=== PATIENT | female | born 1940 | race Caucasian/White ===

== ENCOUNTER → 2024-03-17 10:16 | Outpatient (REF) | payer MEDICARE, SELFPAY ==
[2024-03-17 13:47] LABS: HDL Cholesterol 84 mg/dl; LDL Cholesterol, Calculated 172 mg/dl; Total Cholesterol 281 mg/dl (50-199); Triglyceride 125 mg/dl (10-149); Very Low Density Lipoprotein 25 mg/dl (0-30)
== END ==
LOC: OLABWIL 10:16
PROVIDERS: ATTENDING PHYSICIAN Nurse Practitioner Family
DX: E78.5 Hyperlipidemia, unspecified (principal)
CPT/HCPCS: 36415; 80061

== ENCOUNTER → 2024-11-19 12:27 | Outpatient (REF) | payer MEDICARE, SELFPAY ==
[2024-11-19 13:35] LABS: % Basophils 0.9 % (0-2); % Eosinophils 2.1 % (0-6); % Immature Granulocytes 0.2 % (0-0.5); % Lymphocytes 47.5 % (20.5-51.1); % Monocytes 11.7 % (1.7-9.3); % Neutrophils 37.6 % (42.2-75.2); Absolute Basophils 0.1 10^3/uL (0-0.2); Absolute Eosinophils 0.1 10^3/uL (0-0.7); Absolute Lymphocytes 2.7 10^3/uL (1.2-3.4); Absolute Monocytes 0.7 10^3/uL (0.1-0.6); Absolute Neutrophils 2.2 10^3/uL (1.4-6.5); Hematocrit 41.7 % (37.0-47.0); Hemoglobin 13.3 g/dL (12.0-16.0); Mean Corp Hgb Conc. 31.9 g/dL (33.0-37.0); Mean Corpuscular Hgb 30.2 pg (27.0-31.0); Mean Corpuscular Volume 94.6 fL (81.0-99.0); Mean Platelet Volume 11.2 fL (7.4-10.4); Nucleated Red Blood Cells % 0 %; Platelet Count 220 10^3/uL (130-400); Red Blood Cell Count 4.41 10^6/uL (4.20-5.40); Red Cell Dist. Width 14.3 % (11.5-14.5); White Blood Cell Count 5.8 10^3/uL (4.8-10.8)
[2024-11-19 14:02] LABS: Erythrocyte Sed Rate 2 mm/hour (0-20)
[2024-11-19 14:55] LABS: ALT (SGPT) 14 U/L (0-35); AST (SGOT) 24 U/L (14-36); Albumin 4.3 g/dl (3.5-5.0); Alkaline Phosphatase 54 U/L (38-126); Blood Urea Nitrogen 24 mg/dl (7-17); Calcium 9.2 mg/dl (8.4-10.2); Carbon Dioxide 30 mmol/L (22-30); Chloride 110 mmol/L (98-107); Glucose 91 mg/dl (70-99); HDL Cholesterol 74 mg/dl; LDL Cholesterol, Calculated 179 mg/dl; Potassium 4.2 mmol/L (3.5-5.1); Sodium 145 mmol/L (135-145); Total Bilirubin 0.6 mg/dl (0.2-1.3); Total Cholesterol 273 mg/dl (50-199); Total Protein 6.9 g/dl (6.3-8.2); Triglyceride 101 mg/dl (10-149); Very Low Density Lipoprotein 20 mg/dl (0-30); eGFR > 60.00
[2024-11-19 15:25] LABS: TSH Reflex To Free T4 3.88 uIU/ml (0.47-4.68)
== END ==
LOC: OLABWHC 12:27
PROVIDERS: ATTENDING PHYSICIAN Internal Medicine
DX: I10 Essential (primary) hypertension (principal); Z86.73 Personal history of transient ischemic attack (TIA), and cerebral infarction without residual deficits; E78.5 Hyperlipidemia, unspecified
CPT/HCPCS: 36415; 80053; 80061; 84443; 85025; 85652

== ENCOUNTER 2025-02-11 11:43 | Emergency (ER) | payer MEDICARE, SELFPAY ==
[2025-02-11 11:45] VITALS: BP 155/87
[2025-02-11 12:01] VITALS: BP 154/96
--- NOTE | 2025-02-11 12:15 | ED.GENMED ---
History of Present Illness
General
Chief Complaint: Abdominal Pain
Source: patient
Exam Limitations: none
Time Seen by Provider: 02/11/25 12:08
History of Present Illness
History of Present Illness:
See MDM
Past History
Past History
ED Past Medical History: CVA and HTN
ED Past Surgical History: Tonsilectomy
Social History
Tobacco: Former smoker
Alcohol: None
Drug: None
Living: with family
Family History
Family History: Negative Diabetes
Phy Exam
Physical Exam
Physical Exam:
See MDM
Course
Orders/Labs/Results
Orders:
Orders
02/11/25 12:14
CT Abd/pelvis W Iv Cont Urgent
Comment:
Reason For Exam: intermittent generalized abd pain
Acetaminophen [Tylenol] 650 mg PO NOW STA
02/11/25 12:23
Basic Metabolic Panel Urgent
Complete Blood Count/With Diff Urgent
02/11/25 13:24
Comprehensive Metabolic Panel Urgent
Comment: Previous hemolyzed
02/11/25 15:07
Amoxicillin 875 mg/Clav 125 mg [Augmentin 875 mg/125 mg] 1 tablet PO NOW STA
Abnormal Lab Results
02/11/25 02/11/25
12:23 13:24
MCHC 32.6 L g/dL
(33.0-37.0)
BUN 22 H mg/dl 21 H mg/dl
(7-17) (7-17)
Glucose 110 H mg/dl 103 H mg/dl
(70-99) (70-99)
02/11/25 12:23
02/11/25 13:24
Vital Signs
Initial and Last Documented VS:
Initial Vital Signs
Temp Pulse Resp BP Pulse Ox
97.6 F 75 16 155/87 98
02/11/25 11:45 02/11/25 11:45 02/11/25 11:45 02/11/25 11:45 02/11/25 11:45
Last Documented Vital Signs
Temp Pulse Resp BP Pulse Ox
98.6 F 72 17 131/77 96
02/11/25 11:57 02/11/25 14:22 02/11/25 14:22 02/11/25 14:22 02/11/25 14:22
MDM/Problems Addressed
Differential Diagnosis Includes:
Note:
CHIEF COMPLAINT(S)
The patient presents with abdominal pain and difficulty with bowel movements.
HISTORY OF PRESENT ILLNESS
The patient is an 84-year-old female experiencing abdominal discomfort for several days, primarily characterized by constipation. She described using her hands to attempt to facilitate the passage of stool, expressing a feeling that she is unable to
completely evacuate her bowels. The patient reports significant effort in trying to relieve the blockage but continues to feel discomfort. During the examination, tenderness was noted upon palpation, and a digital rectal examination revealed some
stool present but softer rather than impacted feces. Despite her efforts, including direct digital attempts to clear stool, complete relief has not been achieved.
PHYSICAL EXAM
General: Alert, no acute distress.
Skin: Warm, dry.
Head: Normocephalic, atraumatic
Neck: Appears supple, trachea midline.
Eyes, Ears, Nose, Mouth, and Throat: Oral mucosa moist.
Cardiovascular: No signs of cyanosis
Respiratory: Respirations are non-labored.
Abdomen: Non-distended. Mild generalized tenderness without rebound
Rectal: Soft stool in the rectal vault. Small external hemorrhoids
Musculoskeletal: No deformities
Neurological: No focal neurological deficit observed.
Psychiatric: Cooperative, appropriate mood and affect.
PLAN
- Perform a CT scan of the abdomen to rule out other potential causes of the discomfort and ensure no severe pathology is present.
- Administer acetaminophen (Tylenol) for pain management.
DIFFERENTIAL DIAGNOSIS
The Differential Diagnosis includes, in no particular order and is not limited to:
1. Constipation
2. Fecal impaction
3. Bowel obstruction
4. Colorectal carcinoma
5. Diverticulitis
6. Irritable bowel syndrome
7. Hernia
8. Ischemic colitis
9. Sigmoid volvulus
10. Gastroenteritis
SUMMARY OF ENCOUNTER
The patient, an 84-year-old female, was evaluated due to abdominal pain and difficulty with bowel movements, presenting primarily with constipation and the sensation of incomplete bowel evacuation. A CT scan of the abdomen was performed, indicating
diverticulitis without abscess or free air. There was also mention of colitis on the scan, but no evidence of mucosal abnormalities. The patient was managed with antibiotics, specifically amoxicillin/clavulanate, and pain management was addressed
with acetaminophen.
DISPOSITION
The patient is planned for discharge with instructions for primary care physician follow-up.
PLAN
The plan is to initiate antibiotic therapy with amoxicillin/clavulanate and manage pain with acetaminophen. The patient is advised to follow up with a primary care physician to monitor progress and reassess if symptoms persist or worsen.
INDEPENDENT REVIEW OF LABS AND INTERPRETATION OF TESTS
My independent interpretation of the CT scan reveals findings consistent with diverticulitis and colitis, without evidence of abscess or free air. The mucosal lining appears normal.
MEDICATION RECONCILIATION
Amoxicillin/Clavulanate prescribed for treatment of diverticulitis.
Acetaminophen for pain management.
MEDICAL DECISION MAKING
- Complexity of Data Reviewed: Chronic conditions affecting care include history consistent with constipation and diverticular disease. The differential diagnosis considered includes constipation, fecal impaction, bowel obstruction, colorectal
carcinoma, diverticulitis, irritable bowel syndrome, hernia, ischemic colitis, sigmoid volvulus, and gastroenteritis.
- Data:
Category 1: CT scan reviewed and independently interpreted with findings supporting the diagnosis of diverticulitis.
Category 3: Management discussed with the patient emphasizing the importance of follow-up with a primary care physician.
- Risk: The decision to discharge with antibiotic therapy was made based on the non-acute presentation and controlled symptoms. Consideration of admission was not pursued as the work-up did not reveal acute or life-threatening processes.
DIAGNOSIS
- Diverticulitis (ICD-10: K57.32)
- Colitis, unspecified (ICD-10: K52.9)
*Pulse Oximetry
SaO2: 94
Oxygen Mode of Delivery: Room air
Patient hypoxic: no
*Critical Care Note
Total Time (30-74mins, 75-104mins- exclusive of procedures): Not Applicable
ED Attending Note
-
Portions of this chart may have been created with voice recognition software.� Occasional wrong word or��sound alike� substitutions may have occurred due to the inherent limitations of voice recognition software.
Discharge Plan
Departure
Patient Disposition: Home (Routine Discharge)
Date of Disposition: 02/11/25
Time of Disposition: 15:09
Patient with high blood pressure during this ER visit?: No
Discharge Problem:
Diverticulitis
Instructions: Diverticulitis (DC)
Prescriptions:
New
amoxicillin-pot clavulanate 875-125 mg tablet
1 tab PO BID Qty: 14 0RF
No Action
simvastatin 40 MG tablet
40 mg PO DAILY
coenzyme U86-zdaltod E 1 CAP capsule
1 cap PO DAILY
gcvxmozd-lzz-chfe-FA-vit K-lut [Multivitamin Women 50 Plus] 1 EACH tablet
1 ea PO DAILY
clopidogrel [Plavix] 75 MG tablet
75 mg PO Daily Qty: 21 0RF
atorvastatin 40 MG tablet
40 mg PO Daily Qty: 30 0RF
Referrals:
Jareth Yap MD [Family Provider, Internal Medicine]
Activity Restrictions/Additional Instructions:
Please return for any worsening symptoms.
You may return at any time if you have further concerns.
Please follow up with your doctor at the first available appointment, preferably this week.
Thank you for choosing [facility].
Interventions
Interventions:
*Risk Screen - Suicide Last Done: 02/11/25 11:45
*General Assessment Last Done: 02/11/25 12:03
*Neglect/Abuse Screening Last Done: 02/11/25 11:45
*ED- Fall Risk Assessment Last Done: 02/11/25 12:03
*ED COVID-19 Vaccine History Last Done: 02/11/25 12:03
VG-Gcbzhi-Oziocdtcbo Assessment Last Done: 02/11/25 12:00
Discharge Date and Time
Print Language: PRYDEINIG
[2025-02-11 12:24] VITALS: BMI 27.9
[2025-02-11 12:32] LABS: Hematocrit 38.6 % (37.0-47.0); Hemoglobin 12.6 g/dL (12.0-16.0); Mean Corp Hgb Conc. 32.6 g/dL (33.0-37.0); Mean Corpuscular Volume 91.5 fL (81.0-99.0); Nucleated Red Blood Cells % 0 %; Platelet Count 197 10^3/uL (130-400); Red Cell Dist. Width 13.9 % (11.5-14.5)
[2025-02-11 12:49] LABS: Blood Urea Nitrogen 22 mg/dl (7-17); Calcium 9.2 mg/dl (8.4-10.2); Carbon Dioxide 28 mmol/L (22-30); Chloride 106 mmol/L (98-107); Estimated Creatinine Clearance 53 ml/min; Glucose 110 mg/dl (70-99); Sodium 138 mmol/L (135-145); eGFR > 60.00
[2025-02-11] MEDS: TYLENOL 650 MG PO (13:04)
[2025-02-11 14:10] LABS: ALT (SGPT) 21 U/L (0-35); AST (SGOT) 25 U/L (14-36); Albumin 4.0 g/dl (3.5-5.0); Alkaline Phosphatase 74 U/L (38-126); Blood Urea Nitrogen 21 mg/dl (7-17); Calcium 9.2 mg/dl (8.4-10.2); Carbon Dioxide 27 mmol/L (22-30); Chloride 107 mmol/L (98-107); Estimated Creatinine Clearance 53 ml/min; Glucose 103 mg/dl (70-99); Potassium 4.1 mmol/L (3.5-5.1); Sodium 138 mmol/L (135-145); Total Protein 6.5 g/dl (6.3-8.2); eGFR > 60.00
[2025-02-11 14:22] VITALS: BP 131/77
[2025-02-11] MEDS: AUGMENTIN 875 MG/125 MG 1 TABLET PO (15:37)
[2025-02-11 16:48] VITALS: BP 130/77
== END 2025-02-11 17:03 | disposition home or self-care (01) ==
LOC: EMR 11:43
PROVIDERS: EMERGENCY PHYSICIAN Student in an Organized Health Care Education/Training Program; FAMILY PHYSICIAN Internal Medicine
DX: K57.32 Diverticulitis of large intestine without perforation or abscess without bleeding (principal); K52.9 Noninfective gastroenteritis and colitis, unspecified; I10 Essential (primary) hypertension; Z79.02 Long term (current) use of antithrombotics/antiplatelets; Z86.73 Personal history of transient ischemic attack (TIA), and cerebral infarction without residual deficits; Z87.891 Personal history of nicotine dependence
CPT/HCPCS: 99284; 74177; 80048; 80053; 85025; Q9967